=== PATIENT | female | born 1985 | race Caucasian/White ===

== ENCOUNTER → 2018-02-17 | Outpatient (CLI) | payer OTHER ==
[2018-02-17 11:41] LABS: Basophils % (A) 0 %; Eosinophils # (A) 0.1 k/uL (0-0.7); Eosinophils % (A) 1 %; HCT 40.5 % (34.0-46.0); HGB 13.6 gm/dL (11.4-16.0); Lymphocytes # (A) 1.9 k/uL (1.0-4.8); Lymphocytes % (A) 27 %; MCH 31.1 pg (25.0-35.0); MCHC 33.5 g/dL (31.0-37.0); MCV 92.7 fL (80.0-100.0); Mean Platelet Volume 7.3; Monocytes # (A) 0.5 k/uL (0-1.0); Monocytes % (A) 7 %; Neutrophils # (A) 4.5 k/uL (1.3-7.7); Neutrophils % (A) 63 %; Platelet Count 297 k/uL (150-450); RBC 4.37 m/uL (3.80-5.40); WBC 7.2 k/uL (3.8-10.6)
== END | disposition home or self-care (01) ==
LOC: LABPAT 11:04
PROVIDERS: ATTEND Obstetrics & Gynecology
DX: Z01.812 Encounter for preprocedural laboratory examination (principal); O03.9 Complete or unspecified spontaneous abortion without complication; Z3A.00 Weeks of gestation of pregnancy not specified
CPT/HCPCS: 36415; 85025

== ENCOUNTER 2018-02-18 08:19 | Day surgery (SDC) | payer OTHER ==
[2018-02-15 16:19] VITALS: BMI 23.9
[~2018-02-18 08:19] MED LIST: DEXAMETHASONE SOD PHOSPHATE 10 MG/ML 1 ML VIAL IV ONE; LACTATED RINGERS 1,000 ML IV SCH; MIDAZOLAM 2 MG/2 ML VIAL IV PRN; ONDANSETRON 4 MG/2 ML VIAL IVP ONE; Pre Op ABX Message 1 EACH MISC MISCELLANE ONE; SCOPOLAMINE 1.5MG/72HR PATCH TRANSDERM ONE; fentaNYL (PF) 50 MCG/ML 2 ML AMP IV PRN
[2018-02-18 08:52] VITALS: RESP 16; TEMP 98
[2018-02-18] MEDS ORDERED: PROPOFOL 10 MG/ML 20 ML VIAL IV ONE (09:21)
[2018-02-18] MEDS ORDERED: fentaNYL (PF) 50 MCG/ML 2 ML AMP ONE (09:21)
[2018-02-18] MEDS ORDERED: KETOROLAC 30 MG/ML 1 ML VIAL ONE (09:21)
[2018-02-18] MEDS ORDERED: LIDOCAINE 1% INJ 10MG/ML (20 ML MDV) ONE (09:21)
[2018-02-18] MEDS ORDERED: MIDAZOLAM 2 MG/2 ML VIAL ONE (09:21)
[2018-02-18] MEDS ORDERED: ONDANSETRON 4 MG/2 ML VIAL IVP PRN (09:49)
[2018-02-18] MEDS ORDERED: Acetaminophen-Codeine 300-30mg TAB PO PRN ×2 (09:49)
[2018-02-18] MEDS ORDERED: METOCLOPRAMIDE 5 MG/ML 2 ML VIAL IVP PRN (09:49)
[2018-02-18] MEDS ORDERED: IBUPROFEN 600 MG TAB PO PRN (09:49)
[2018-02-18] MEDS ORDERED: diphenhydrAMINE 50 MG/ML 1 ML VIAL IVP PRN (09:49)
[2018-02-18] MEDS ORDERED: SIMETHICONE 80 MG CHEWABLE PO PRN (09:49)
--- NOTE | 2018-02-18 09:56 | P.OP ---
Date of Procedure: 02/18/18 Preoperative Diagnosis: #1. 8 week missed Postoperative Diagnosis: Same Procedure(s) Performed: #1. Dilation and aspiration curettage Anesthesia: other (Gen. by face mask) Surgeon: Nate Owen Estimated Blood Loss (ml): 50 IV fluids (ml): 300 Urine output (ml): 150 Pathology: other (Endometrial contents) Condition: stable Disposition: PACU Operative Findings: Preoperative pelvic examination demonstrated a roughly 7-8 week slightly retroverted mobile normal shaped uterus with normal adnexa bilaterally. Intraoperatively, the uterus sounded to approximately 8-9 cm. The cervix was not dilated but easily admitted gradually larger Hegar dilators to a #20. A #9 suction curette was used and tissue was clearly seen passing through the tubing. Sharp curettage produced no further tissue and demonstrated the usual gritty texture. Description of Procedure: The patient was prepped and draped in usual fashion after general anesthesia was administered by the anesthesiologist. A weighted speculum was placed and the bladder was drained of approximately 150 mL of clear joe urine. The anterior lip of the cervix was grasped with a single-tooth tenaculum and uterus sounded to approximately 8-9 cm. Serial dilation was carried out to #20 Hegar dilator without difficulty. A #9 curved aspiration curet was placed to the fundus of the uterus and suction applied. After adequate suction had been built , thorough and circumferential aspiration curettage was carried out from the fundus to the cervix with tissue clearly seen passing through the tubing. A second pass was made at which time no further tissue was noted. The aspiration curet was set aside in favor of a small sharp curette which was utilized to again thoroughly and circumferentially curet the endometrial cavity with no further tissue noted and the typical gritty texture encountered throughout. One last pass was made with the aspiration curet demonstrating no further tissue. All instrumentation was then removed. There was no ongoing bleeding from the tenaculum site and minimally from the cervix. Uterus was appreciably smaller. All sponge, instrument, and needle counts were correct. There were no complications. The patient tolerated the procedure well and proceeded to the recovery room in stable condition.
[2018-02-18] MEDS ORDERED: LACTATED RINGERS 1,000 ML IV SCH (10:00)
[2018-02-18 10:45] VITALS: PULSE 56
[2018-02-18 11:00] VITALS: BP 96/63
== END 2018-02-18 11:20 | disposition home or self-care (01) ==
LOC: OR 08:19
PROVIDERS: ATTEND Obstetrics & Gynecology
DX: O02.1 Missed abortion (principal); Z3A.08 8 weeks gestation of pregnancy; F41.9 Anxiety disorder, unspecified; F32.9 Major depressive disorder, single episode, unspecified; F43.10 Post-traumatic stress disorder, unspecified; K21.9 Gastro-esophageal reflux disease without esophagitis; E03.9 Hypothyroidism, unspecified; Z88.2 Allergy status to sulfonamides; Z91.030 Bee allergy status; Z87.891 Personal history of nicotine dependence; Z79.890 Hormone replacement therapy
CPT/HCPCS: 88305; 59820; J2250; J1100; J2405; J2001; J3010; J1885; J2704; 86850; 86900; 86901